=== PATIENT | female | born 1995 | race Caucasian/White ===

== ENCOUNTER 2018-06-11 20:01 | Emergency (ER) | payer OTHER ==
[2018-06-11] MEDS: ACETAMINOPHEN TAB 650MG DOSE (2X325MG) PO (20:44)
== END 2018-06-11 20:45 | disposition home or self-care (01) ==
LOC: M ED 20:01
DX: S06.0X9A Concussion with loss of consciousness of unspecified duration, initial encounter (principal); Y92.009 Unspecified place in unspecified non-institutional (private) residence as the place of occurrence of the external cause; W06.XXXA Fall from bed, initial encounter
CPT/HCPCS: 99282

== ENCOUNTER 2018-07-29 20:47 | Emergency (ER) | payer OTHER ==
[~2018-07-29] VITALS: Ht 160 cm; Wt 61.8 kg
[2018-07-29] MEDS ORDERED: CIPROFLOXACIN 500 MG TAB PO ONE (22:00)
[2018-07-29] MEDS ORDERED: PHENAZOPYRIDINE 100 MG TAB PO ONE (22:00)
[2018-07-29] MEDS ORDERED: CIPR-249 PO (22:03)
[2018-07-29] MEDS ORDERED: PYRI1TAB5 PO (22:03)
[2018-07-29 22:16] VITALS: BP 117/77
== END 2018-07-29 22:37 | disposition home or self-care (01) ==
LOC: M ED 20:47
DX: N39.0 Urinary tract infection, site not specified (principal)